=== PATIENT | female | born 1995 | race American Indian/Alaskan Native ===

== ENCOUNTER 2016-05-30 16:16 | Emergency (ER) | payer SELFPAY ==
[~2016-05-30] VITALS: Ht 162.6 cm; Wt 68.2 kg
[2016-05-30 16:19] VITALS: TEMP 98.9
[2016-05-30] MEDS ORDERED: DEPO-PROVER150 MG/M1 IM (16:21)
[2016-05-30 17:25] LABS: ADD PATHOLOGY DIFF REVIEW NO; HEMATOCRIT 38.1 % (35.0-45.0); HEMOGLOBIN 12.8 g/dl (12.0-15.0); MEAN CELL VOLUME 86 fl (80.0-95.0); MEAN CORPUSCULAR HEMOGLOBIN 29 pg (26.0-32.0); MEAN CORPUSCULAR HGB CONC 34 g/dl (33.0-37.0); MEAN PLATELET VOLUME 12.2 fl (7.4-10.4); PLATELET COUNT 190 K/mm3 (130-400); RED BLOOD COUNT 4.42 M/mm3 (4.10-5.30); REDCELL DISTRIBUTION WIDTH-CV 12.2 % (11.5-14.5); WHITE BLOOD COUNT 5.2 K/mm3 (4.8-10.8)
[2016-05-30 17:33] LABS: BAND 11 % (0-10); NEUTROPHILS 79 % (42.0-75.2); TOTAL CELLS COUNTED 100
[2016-05-30 17:36] LABS: ADJUSTED CALCIUM 8.7 mg/dL (8.4-10.2); ALANINE AMINOTRANSFERASE 25 U/L (9-52); ALBUMIN 5.4 gm/dL (3.5-5.0); ALKALINE PHOSPHATASE 53 U/L (50-136); ANION GAP 16 mmol/L (7-16); BILIRUBIN,TOTAL 0.6 mg/dL (0.0-1.0); BLOOD UREA NITROGEN 8 mg/dL (7-17); CALCIUM 9.8 mg/dL (8.4-10.2); CARBON DIOXIDE 21 mmol/L (22-30); CHLORIDE 103 mmol/L (98-107); CREATININE, serum 0.86 mg/dL (0.52-1.25); GLUCOSE 84 mg/dL (74-106); POTASSIUM 3.5 mmol/L (3.4-5.0); SODIUM 140 mmol/L (137-145); TOTAL PROTEIN 8.5 gm/dL (6.4-8.2)
[2016-05-30 17:37] LABS: C-REACTIVE PROTEIN < 0.5 mg/dL (0.0-0.9)
[2016-05-30 18:30] LABS: PH 5 (5-8); SQUAMOUS EPITHELIAL 0-2 /hpf; URINE APPEARANCE Hazy; URINE BACTERIA Rare /hpf; URINE BILIRUBIN Negative (NEGATIVE); URINE BLOOD Negative (NEGATIVE); URINE COLOR Yellow; URINE GLUCOSE Negative (NEGATIVE); URINE KETONE 1+ (NEGATIVE); URINE RBC 0-2 /hpf; URINE UROBILINOGEN Negative (NEGATIVE); URINE WBC 0-2 /hpf
[2016-05-30] MEDS ORDERED: ZOFRAN ODT4 MG PO (19:03)
[2016-05-30 19:13] VITALS: BP 130/73; PULSE 67
== END 2016-05-30 19:14 | disposition home or self-care (01) ==
LOC: COL.ER 16:16
PROVIDERS: Nurse Practitioner
DX: B34.9 Viral infection, unspecified (principal); R52 Pain, unspecified; R11.0 Nausea; R51 Headache
CPT/HCPCS: J1885; J2405; J7030